=== PATIENT | male | born 1990 | race Hispanic/Latino ===

== ENCOUNTER 2017-12-07 01:28 | Emergency (ER) | payer OTHER | END 2017-12-07 03:39 | disposition left against medical advice (07) | LOC: M ED 01:28 | DX: Z53.29 Procedure and treatment not carried out because of patient's decision for other reasons (principal) ==

== ENCOUNTER 2018-12-24 09:59 | Emergency (ER) | payer OTHER ==
[~2018-12-24] VITALS: Ht 185.4 cm; Wt 116.5 kg
[2018-12-24] MEDS ORDERED: CLAR10CA3 PO (10:13)
[2018-12-24 11:12] LABS: BASO # 0.1 10^3/uL (0.0-0.2); BASO % 0.8 % (0.0-1.0); EOS # 0.4 10^3/uL (0.0-0.5); HEMATOCRIT 45.3 % (42.0-52.0); HEMOGLOBIN 15.3 g/dl (13.5-17.5); LYMPH # 2.9 10^3/uL (1.5-5.0); LYMPH % 28.4 % (24.0-44.0); MEAN CORPUSCULAR HEMOGLOBIN 30.2 pg (27.0-33.0); MEAN CORPUSCULAR HGB CONC 33.8 g/dl (32.0-36.5); MEAN CORPUSCULAR VOLUME 89.5 fl (80.0-96.0); MONO # 0.8 10^3/uL (0.0-0.8); MONO % 7.9 % (0.0-5.0); NEUTROPHILS # 5.9 10^3/uL (1.5-8.5); NEUTROPHILS % 58.4 % (36.0-66.0); PLATELET COUNT, AUTOMATED 325 10^3/uL (150-450); RED BLOOD COUNT 5.06 10^6/uL (4.30-6.10); WHITE BLOOD COUNT 10.1 10^3/uL (4.0-10.0)
[2018-12-24] MEDS ORDERED: ISOVUE-370 76% 100ML VIAL (Q9967) As Ordered ONE (11:16)
[2018-12-24] MEDS ORDERED: MUCI30TA5 PO (12:10)
[2018-12-24] MEDS ORDERED: FLON1SPR NARES (12:10)
[2018-12-24 12:21] VITALS: BP 134/84
--- NOTE | 2018-12-24 13:48 | REP ---
CT of the chest with IV contrast, CT pulmonary angiography: There are no comparisons. There are no emboli in the pulmonary trunk or central pulmonary arteries. There are no emboli in the pulmonary lobe or segment branches. There are no infiltrates or pleural effusions. There are no lung masses or nodules. There is no mediastinal, hilar or axillary lymphadenopathy. The thoracic aorta is unremarkable. Cardiac size is normal. There is no pericardial effusion. The visualized upper abdominal contents are unremarkable. Impression: There are no pulmonary emboli. Otherwise, negative CT study of the chest. Electronically Signed by Pillo Keenan MD 12/24/2018 01:39 P
== END 2018-12-24 12:24 | disposition home or self-care (01) ==
LOC: M ED 09:59
DX: J20.8 Acute bronchitis due to other specified organisms (principal); Z79.899 Other long term (current) drug therapy
CPT/HCPCS: 36415; 71275; 80047; 85025; 99284; Q9967

== ENCOUNTER 2019-03-06 02:25 | Emergency (ER) | payer OTHER ==
[~2019-03-06 02:25] MED LIST: CLAR10CA3 PO; FLON1SPR NARES; MUCI30TA5 PO
[2019-03-06] MEDS ORDERED: ADACEL/BOOSTRIX VACCINE (DIPHTH/PERTUSS/ACELL/TETANUS)0.5ML SYR (90715) IM ONE (03:15)
[2019-03-06 03:25] LABS: HEMATOCRIT 44.6 % (42.0-52.0); HEMOGLOBIN 14.8 g/dl (13.5-17.5); MEAN CORPUSCULAR HEMOGLOBIN 30.1 pg (27.0-33.0); MEAN CORPUSCULAR HGB CONC 33.2 g/dl (32.0-36.5); MEAN CORPUSCULAR VOLUME 90.7 fl (80.0-96.0); PLATELET COUNT, AUTOMATED 284 10^3/uL (150-450); RED BLOOD COUNT 4.92 10^6/uL (4.30-6.10)
[2019-03-06 03:30] LABS: WHITE BLOOD COUNT 11.5 10^3/uL (4.0-10.0)
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
[2019-03-06 03:42] LABS: ATYPICAL LYMPH 17 % (0-5); EOSINOPHILS 8 % (0-3); LYMPHOCYTES 35 % (16-44); MONOCYTES 11 % (0-5); NEUTROPHILS 29 % (28-66); PLATELET ESTIMATE NORMAL (NORMAL)
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
[2019-03-06] MEDS ORDERED: MIDAZOLAM INJ 5 MG/ML VIAL (J2250) As Ordered ONE (04:18)
[2019-03-06 04:22] LABS: ALBUMIN 3.6 GM/DL (3.2-5.2); ALT/SGPT 49 U/L (12-78); BILIRUBIN,DIRECT < 0.1 MG/DL (0.0-0.2); BILIRUBIN,TOTAL 0.4 MG/DL (0.2-1.0); BLOOD UREA NITROGEN 15 MG/DL (7-18); CARBON DIOXIDE LEVEL 22 MEQ/L (21-32); CHLORIDE LEVEL 106 MEQ/L (98-107); ETHYL ALCOHOL (ETHANOL) 0.328 % (0.000-0.010); GLOMERULAR FILTRATION RATE > 60.0 (>60); GLUCOSE, FASTING 105 MG/DL (70-100); POTASSIUM SERUM 3.4 MEQ/L (3.5-5.1); SODIUM LEVEL 139 MEQ/L (136-145); TOTAL PROTEIN 6.9 GM/DL (6.4-8.2)
[2019-03-06] MEDS ORDERED: MIDAZOLAM INJ 5 MG/ML VIAL (J2250) IM ONE (04:30)
[2019-03-06] MEDS ORDERED: MIDAZOLAM INJ 2 MG/2 ML VIAL (J2250) IV ONE (04:45)
--- NOTE | 2019-03-06 05:50 | ECGEPIP ---
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
[2019-03-06 06:15] VITALS: BP 136/83
== END 2019-03-06 06:56 | disposition left against medical advice (07) ==
LOC: M ED 02:25
DX: S02.2XXA Fracture of nasal bones, initial encounter for closed fracture (principal); Y04.8XXA Assault by other bodily force, initial encounter; Y92.89 Other specified places as the place of occurrence of the external cause; F10.229 Alcohol dependence with intoxication, unspecified; Y90.1 Blood alcohol level of 20-39 mg/100 ml; Z79.899 Other long term (current) drug therapy
CPT/HCPCS: 70450; 70486; 72125; 80048; 80076; 85025; 93005; 93041; 94760; 96374; 99285; G0480; J2250

== ENCOUNTER 2019-05-27 16:27 | Emergency (ER) | payer OTHER ==
[~2019-05-27] VITALS: Ht 182.9 cm; Wt 121.0 kg
[2019-05-27] MEDS ORDERED: CEPHALEXIN 500 MG CAP PO ONE (17:15)
[2019-05-27] MEDS ORDERED: KEFL500C17 PO (17:22)
[2019-05-27 17:48] VITALS: BP 150/63
== END 2019-05-27 17:50 | disposition home or self-care (01) ==
LOC: M ED 16:27
DX: L97.919 Non-pressure chronic ulcer of unspecified part of right lower leg with unspecified severity (principal); I10 Essential (primary) hypertension; F17.210 Nicotine dependence, cigarettes, uncomplicated